=== PATIENT | male | born 1965 | race Two or more races ===

== ENCOUNTER 2024-04-10 13:48 | Emergency (ER) | payer OTHER ==
[2024-04-10 13:54] VITALS: BP 153/95; RESP 20; TEMP 98.4; BMI 31.7
[2024-04-10] MEDS ORDERED: ACETAMINOPHEN 500 MG TABLET (FP) ONE (14:52)
[2024-04-10] MEDS ORDERED: DIPHTH,PERTUSS(ACELL),TET 0.5 ML DISP.SYRIN IM ONE (14:52)
[2024-04-10] MEDS: DIPHTH,PERTUSS(ACELL),TET 0.5 ML DISP.SYRIN IM ONE (14:56)
[2024-04-10] MEDS: ACETAMINOPHEN 500 MG TABLET (FP) PO ONE (14:56)
[2024-04-10 15:42] VITALS: PULSE 107
== END 2024-04-10 15:42 | disposition home or self-care (01) ==
LOC: JERFT 13:48
PROC: 3E0234Z Introduction of Serum, Toxoid and Vaccine into Muscle, Percutaneous Approach (ICD-10-PCS; principal; 2024-04-10)
DX: S61.211A Laceration without foreign body of left index finger without damage to nail, initial encounter (principal); W26.0XXA Contact with knife, initial encounter; Y99.0 Civilian activity done for income or pay; Z23 Encounter for immunization
CPT/HCPCS: 90471; 90715; 99284-25